=== PATIENT | female | born 1990 | race African-American/Black ===

== ENCOUNTER 2017-09-11 19:34 | Emergency (ER) | payer MEDICARE ==
[~2017-09-11] VITALS: Ht 157.5 cm; Wt 65.9 kg
[2017-09-11 19:49] VITALS: Ht 157.5 cm; Wt 65.9 kg
[2017-09-11] MEDS ORDERED: EXCEDRIN CAPLET1 TAB PO (19:51)
[2017-09-11] MEDS ORDERED: SUMATRIPTAN SUC25 MG PO (23:40)
[2017-09-12 00:31] VITALS: BP 128/79
== END 2017-09-12 00:29 | disposition home or self-care (01) ==
LOC: D.ER 19:34
DX: G43.909 Migraine, unspecified, not intractable, without status migrainosus (principal); H53.149 Visual discomfort, unspecified

== ENCOUNTER 2020-06-29 14:19 | Emergency (ER) | payer MEDICARE ==
[~2020-06-29] VITALS: Ht 157.5 cm; Wt 77.3 kg
[~2020-06-29 14:19] MED LIST: EXCEDRIN CAPLET1 TAB PO; SUMATRIPTAN SUC25 MG PO
[2020-06-29 14:38] VITALS: BP 183/76; Ht 157.5 cm; Wt 77.3 kg
[2020-06-29] MEDS ORDERED: PRENAVITE1 TAB PO (14:39)
[2020-06-29 15:22] LABS: BASOPHILS 0 % (0-2); EOSINOPHILS 0 % (0-7); HEMATOCRIT 35.5 % (36.0-48.0); HEMOGLOBIN 11.6 g/dL (12-16); IMMATURE GRANULOCYTES 1.2 % (0-5); LYMPHOCYTE ABS# 0.27 10x3/uL (1.18-3.74); LYMPHOCYTES 4.6 % (15-50); MCH 26.5 pg (26.0-34.0); MCHC 32.7 g/dL (31.0-37.0); MCV 81.2 fL (80.0-100.0); MEAN PLATELET VOLUME 9.8 fL (7.4-10.4); MONOCYTES 5.5 % (2-11); NEUTROPHIL ABS# 5.17 10x3/uL (1.56-6.13); NEUTROPHILS 88.7 % (40-80); PLATELET COUNT 250 10x3/uL (130-400); RBC 4.37 10x6/uL (4.00-5.40); RDW 14.6 % (11.5-14.5); WBC 5.8 10x3/uL (4.8-10.8)
[2020-06-29 15:31] LABS: CALC OSMOLALITY 263 mosm/kg (275-300); CALCIUM 8.3 mg/dL (8.5-10.1); CARBON DIOXIDE 22.7 mmol/L (21.0-32.0); CHLORIDE - SERUM 101 mmol/L (98-107); CREATININE - SERUM 0.7 mg/dL (0.6-1.3); GLUCOSE 98 mg/dL (74-106); POTASSIUM - SERUM 3.7 mmol/L (3.5-5.1); SODIUM 133 mmol/L (136-145); UREA NITROGEN 7 mg/dL (7-18); eGFR NON AFRICAN AMERICAN > 90 mL/min (90-120)
[2020-06-29 15:43] LABS: BILIRUBIN NEGATIVE (NEGATIVE); KETONE NEGATIVE (NEGATIVE); NITRITE NEGATIVE (NEGATIVE); UROBILINOGEN NORMAL mg/dL (< 2)
[2020-06-29 15:57] LABS: INFLUENZA TYPE A NEGATIVE (NEGATIVE); INFLUENZA TYPE B NEGATIVE (NEGATIVE); SARS-CoV-2 ANTIGEN NEGATIVE- SARS-COV-2 (NEGATIVE)
[2020-06-29 15:58] LABS: ALBUMIN 2.9 g/dL (3.4-5.0); ALKALINE PHOSPHATASE 78 U/L (30-120); ALT (SGPT) 28 U/L (10-68); BILIRUBIN - TOTAL 0.59 mg/dL (0.2-1.3); HCG - QUANTITATIVE (MATERNAL) 58994 mIU/mL; PROTEIN - SERUM 7.4 g/dL (6.4-8.2)
[2020-06-29] MEDS ORDERED: ZOFRAN ODT4 MG/UDTAB PO (16:57)
== END 2020-06-29 17:58 | disposition home or self-care (01) ==
LOC: D.ER 14:19
PROVIDERS: Emergency Medicine
DX: O26.892 Other specified pregnancy related conditions, second trimester (principal); Z3A.16 16 weeks gestation of pregnancy; K52.9 Noninfective gastroenteritis and colitis, unspecified; R11.2 Nausea with vomiting, unspecified